=== PATIENT | female | born 1985 | race Caucasian/White ===

== ENCOUNTER 2019-12-14 10:49 | Emergency (ER) | payer SELFPAY ==
[2019-12-14 11:21] LABS: Bilirubin Negative (Negative); Blood, Urine Negative (Negative); Clarity Clear (Clear); Glucose, Urine (Dipstick) Negative (Negative); Leukocyte Negative (Negative); Nitrite Negative (Negative); Protein, Urine (Dipstick) Negative (Neg-Trace); Urobilinogen 0.2 mg/dL (Less than 2)
[2019-12-14 11:24] LABS: Pregnancy Test - Urine (BHCG) Negative (Negative); Pregu Control Background? CLEAR/WHITE (CLR/WHITE); Pregu Control Bar Appear? YES (CONTROL BAR)
[2019-12-15 19:02] LABS: Chlamydia by PCR Not Detected (NotDetected); GC by PCR Not Detected (NotDetected)
== END 2019-12-14 11:38 | disposition home or self-care (01) ==
LOC: BURERS 10:49
DX: N89.8 Other specified noninflammatory disorders of vagina (principal); F41.9 Anxiety disorder, unspecified; F32.9 Major depressive disorder, single episode, unspecified; F17.210 Nicotine dependence, cigarettes, uncomplicated; Z79.899 Other long term (current) drug therapy
CPT/HCPCS: 81003; 81025; 87480; 87491; 87510; 87591; 87660; 99283